=== PATIENT | female | born 1940 | race Caucasian/White ===

== ENCOUNTER → 2023-11-22 10:58 | Outpatient (REF) | payer MEDICARE, BC, SELFPAY ==
[2023-11-22 11:42] LABS: % Basophils 0.7 % (0-2); % Eosinophils 2.7 % (0-6); % Immature Granulocytes 0.2 % (0-0.5); % Lymphocytes 20.4 % (20.5-51.1); % Monocytes 7.7 % (1.7-9.3); % Neutrophils 68.3 % (42.2-75.2); Absolute Eosinophils 0.1 10^3/uL (0-0.7); Absolute Lymphocytes 0.9 10^3/uL (1.2-3.4); Absolute Monocytes 0.4 10^3/uL (0.1-0.6); Absolute Neutrophils 3.1 10^3/uL (1.4-6.5); Hematocrit 32.2 % (37.0-47.0); Mean Corp Hgb Conc. 34.2 g/dL (33.0-37.0); Mean Corpuscular Hgb 32.3 pg (27.0-31.0); Mean Corpuscular Volume 94.4 fL (81.0-99.0); Mean Platelet Volume 9.7 fL (7.4-10.4); Nucleated Red Blood Cells % 0 %; Platelet Count 260 10^3/uL (130-400); Red Blood Cell Count 3.41 10^6/uL (4.20-5.40); Red Cell Dist. Width 13.2 % (11.5-14.5); White Blood Cell Count 4.5 10^3/uL (4.8-10.8)
[2023-11-22 11:53] LABS: Erythrocyte Sed Rate 35 mm/hour (0-20)
[2023-11-22 13:37] LABS: Vitamin B12 756 pg/ml (239-931)
[2023-11-22 19:52] LABS: Folate > 20.0 ng/ml (2.76-20)
[2023-11-23 16:36] LABS: Number Of Markers 26 markers; Source Blood
[2023-11-25 17:11] LABS: Albumin 3.95 g/dL (3.75-5.01); Alpha 1 Globulin 0.28 g/dL (0.19-0.46); Alpha 2 Globulin 0.84 g/dL (0.48-1.05); Free Kappa Light Chains,Quant 24.91 mg/L (3.30-19.40); Free Lambda Light Chains,Quant 17.46 mg/L (5.71-26.30); IgA 161 mg/dL (68-408); IgG 1103 mg/dL (768-1632); IgM 50 mg/dL (35-263); Immunofixation Electrophoresis IFE Done; Kappa/Lambda Fr Light Ratio 1.43 (0.26-1.65); Total Protein-Electrophoresis 6.8 g/dL (6.3-8.2)
== END ==
LOC: REG 10:58
PROVIDERS: ATTENDING PHYSICIAN Internal Medicine Hematology & Oncology; FAMILY PHYSICIAN Family Medicine
DX: I82.401 Acute embolism and thrombosis of unspecified deep veins of right lower extremity (principal); D72.819 Decreased white blood cell count, unspecified; D50.9 Iron deficiency anemia, unspecified; Z79.899 Other long term (current) drug therapy
CPT/HCPCS: 36415; 82607; 82746; 82784; 83521; 84155; 84165; 85025; 85652; 86334

== ENCOUNTER → 2024-02-15 11:36 | Outpatient (REF) | payer MEDICARE, BC, SELFPAY ==
[2024-02-15 13:03] LABS: % Basophils 1.1 % (0-2); % Eosinophils 4.9 % (0-6); % Lymphocytes 24.1 % (20.5-51.1); % Monocytes 12.9 % (1.7-9.3); Absolute Eosinophils 0.2 10^3/uL (0-0.7); Absolute Lymphocytes 0.8 10^3/uL (1.2-3.4); Absolute Monocytes 0.5 10^3/uL (0.1-0.6); Hematocrit 30.5 % (37.0-47.0); Hemoglobin 10.2 g/dL (12.0-16.0); Mean Corp Hgb Conc. 33.4 g/dL (33.0-37.0); Mean Corpuscular Hgb 31.5 pg (27.0-31.0); Mean Corpuscular Volume 94.1 fL (81.0-99.0); Mean Platelet Volume 9.9 fL (7.4-10.4); Nucleated Red Blood Cells % 0 %; Platelet Count 213 10^3/uL (130-400); Red Blood Cell Count 3.24 10^6/uL (4.20-5.40); Red Cell Dist. Width 12.9 % (11.5-14.5); White Blood Cell Count 3.5 10^3/uL (4.8-10.8)
[2024-02-15 14:09] LABS: Folate > 20.0 ng/ml (2.76-20); Vitamin B12 865 pg/ml (239-931)
[2024-02-15 14:22] LABS: Erythrocyte Sed Rate 38 mm/hour (0-20)
[2024-02-17 09:51] LABS: Number Of Markers 26 markers; Source Blood
== END ==
LOC: REG 11:36
PROVIDERS: ATTENDING PHYSICIAN Internal Medicine Hematology & Oncology; FAMILY PHYSICIAN Family Medicine
DX: I82.401 Acute embolism and thrombosis of unspecified deep veins of right lower extremity (principal); D72.819 Decreased white blood cell count, unspecified; D50.9 Iron deficiency anemia, unspecified; D51.9 Vitamin B12 deficiency anemia, unspecified
CPT/HCPCS: 36415; 82607; 82746; 82784; 83521; 84155; 84165; 85025; 85652; 86334

== ENCOUNTER → 2024-05-29 08:41 | Outpatient (REF) | payer MEDICARE, BC, SELFPAY ==
[2024-05-29 10:05] LABS: % Basophils 0.8 % (0-2); % Eosinophils 4.3 % (0-6); % Immature Granulocytes 0.3 % (0-0.5); % Lymphocytes 21.6 % (20.5-51.1); % Monocytes 9.8 % (1.7-9.3); % Neutrophils 63.2 % (42.2-75.2); Absolute Eosinophils 0.2 10^3/uL (0-0.7); Absolute Lymphocytes 0.9 10^3/uL (1.2-3.4); Absolute Monocytes 0.4 10^3/uL (0.1-0.6); Absolute Neutrophils 2.5 10^3/uL (1.4-6.5); Hematocrit 33.4 % (37.0-47.0); Hemoglobin 11.4 g/dL (12.0-16.0); Mean Corp Hgb Conc. 34.1 g/dL (33.0-37.0); Mean Corpuscular Hgb 32.3 pg (27.0-31.0); Mean Corpuscular Volume 94.6 fL (81.0-99.0); Mean Platelet Volume 9.8 fL (7.4-10.4); Nucleated Red Blood Cells % 0 %; Platelet Count 236 10^3/uL (130-400); Red Blood Cell Count 3.53 10^6/uL (4.20-5.40); Red Cell Dist. Width 12.7 % (11.5-14.5)
[2024-05-29 11:54] LABS: ALT (SGPT) 22 U/L (0-35); AST (SGOT) 36 U/L (14-36); Albumin 4.5 g/dl (3.5-5.0); Alkaline Phosphatase 56 U/L (38-126); Blood Urea Nitrogen 23 mg/dl (7-17); Calcium 9.7 mg/dl (8.4-10.2); Carbon Dioxide 25 mmol/L (22-30); Chloride 98 mmol/L (98-107); Glucose 85 mg/dl (70-99); HDL Cholesterol 100 mg/dl; Iron 96 ug/dl (37-170); LDL Cholesterol, Calculated 108 mg/dl; Potassium 4.6 mmol/L (3.5-5.1); Sodium 134 mmol/L (135-145); Total Bilirubin 0.6 mg/dl (0.2-1.3); Total Cholesterol 219 mg/dl (50-199); Triglyceride 55 mg/dl (10-149); Very Low Density Lipoprotein 11 mg/dl (0-30); eGFR > 60.00
== END ==
LOC: REG 08:41
PROVIDERS: ATTENDING PHYSICIAN Internal Medicine Hematology & Oncology; FAMILY PHYSICIAN Family Medicine
DX: I10 Essential (primary) hypertension (principal); E78.00 Pure hypercholesterolemia, unspecified; I82.401 Acute embolism and thrombosis of unspecified deep veins of right lower extremity; D72.819 Decreased white blood cell count, unspecified; D50.9 Iron deficiency anemia, unspecified
CPT/HCPCS: 36415; 80053; 80061; 82728; 83540; 85025

== ENCOUNTER → 2024-08-28 15:54 | Outpatient (REF) | payer MEDICARE, BC, SELFPAY ==
[2024-08-28 18:01] LABS: % Basophils 0.7 % (0-2); % Eosinophils 2.9 % (0-6); % Immature Granulocytes 0.2 % (0-0.5); % Lymphocytes 27.3 % (20.5-51.1); % Monocytes 10.3 % (1.7-9.3); % Neutrophils 58.6 % (42.2-75.2); Absolute Eosinophils 0.1 10^3/uL (0-0.7); Absolute Lymphocytes 1.1 10^3/uL (1.2-3.4); Absolute Monocytes 0.4 10^3/uL (0.1-0.6); Absolute Neutrophils 2.5 10^3/uL (1.4-6.5); Mean Corp Hgb Conc. 33.3 g/dL (33.0-37.0); Mean Corpuscular Hgb 31.8 pg (27.0-31.0); Mean Corpuscular Volume 95.4 fL (81.0-99.0); Mean Platelet Volume 10.3 fL (7.4-10.4); Nucleated Red Blood Cells % 0 %; Platelet Count 261 10^3/uL (130-400); Red Blood Cell Count 3.46 10^6/uL (4.20-5.40); Red Cell Dist. Width 12.5 % (11.5-14.5); White Blood Cell Count 4.2 10^3/uL (4.8-10.8)
[2024-08-28 18:22] LABS: Iron 43 ug/dl (37-170)
[2024-08-28 18:32] LABS: Percent Saturation 18 % (20-50); Total Iron Binding Capacity 236 ug/dl (265-497)
[2024-08-28 19:30] LABS: Folate > 20.0 ng/ml (2.76-20); Vitamin B12 798 pg/ml (239-931)
== END ==
LOC: REG 15:54
PROVIDERS: ATTENDING PHYSICIAN Nurse Practitioner Family; FAMILY PHYSICIAN Family Medicine
DX: I82.401 Acute embolism and thrombosis of unspecified deep veins of right lower extremity (principal); D72.819 Decreased white blood cell count, unspecified; D50.9 Iron deficiency anemia, unspecified; D51.9 Vitamin B12 deficiency anemia, unspecified
CPT/HCPCS: 36415; 82607; 82728; 82746; 83540; 83550; 85025

== ENCOUNTER → 2025-03-07 07:06 | Outpatient (REF) | payer MEDICARE, BC, SELFPAY ==
[2025-03-07 08:05] LABS: % Eosinophils 2.6 % (0-6); % Immature Granulocytes 0.3 % (0-0.5); % Lymphocytes 23.8 % (20.5-51.1); % Monocytes 10.8 % (1.7-9.3); % Neutrophils 61.5 % (42.2-75.2); Absolute Eosinophils 0.1 10^3/uL (0-0.7); Absolute Lymphocytes 0.9 10^3/uL (1.2-3.4); Absolute Monocytes 0.4 10^3/uL (0.1-0.6); Absolute Neutrophils 2.4 10^3/uL (1.4-6.5); Hematocrit 33.9 % (37.0-47.0); Hemoglobin 11.2 g/dL (12.0-16.0); Mean Corpuscular Hgb 31.3 pg (27.0-31.0); Mean Corpuscular Volume 94.7 fL (81.0-99.0); Mean Platelet Volume 9.6 fL (7.4-10.4); Nucleated Red Blood Cells % 0 %; Platelet Count 264 10^3/uL (130-400); Red Blood Cell Count 3.58 10^6/uL (4.20-5.40); White Blood Cell Count 3.9 10^3/uL (4.8-10.8)
[2025-03-07 08:32] LABS: Iron 77 ug/dl (37-170)
[2025-03-07 08:42] LABS: Percent Saturation 30 % (20-50); Total Iron Binding Capacity 250 ug/dl (265-497)
== END ==
LOC: REG 07:06
PROVIDERS: ATTENDING PHYSICIAN Internal Medicine Hematology & Oncology; FAMILY PHYSICIAN Family Medicine
DX: I82.401 Acute embolism and thrombosis of unspecified deep veins of right lower extremity (principal); D72.819 Decreased white blood cell count, unspecified; D50.9 Iron deficiency anemia, unspecified
CPT/HCPCS: 36415; 82728; 83540; 83550; 85025

== ENCOUNTER → 2025-09-16 07:35 | Outpatient (REF) | payer MEDICARE, BC, SELFPAY ==
[2025-09-16 08:58] LABS: Hematocrit 33.8 % (37.0-47.0); Hemoglobin 11.2 g/dL (12.0-16.0); Mean Corp Hgb Conc. 33.1 g/dL (33.0-37.0); Mean Corpuscular Volume 96.0 fL (81.0-99.0); Nucleated Red Blood Cells % 0 %; Platelet Count 295 10^3/uL (130-400); Red Cell Dist. Width 14.2 % (11.5-14.5)
[2025-09-16 15:26] LABS: Ferritin 327.0 ng/ml (11.1-264.0)
[2025-09-16 16:21] LABS: ALT (SGPT) 21 U/L (0-35); AST (SGOT) 34 U/L (14-36); Albumin 4.3 g/dl (3.5-5.0); Alkaline Phosphatase 53 U/L (38-126); Blood Urea Nitrogen 16 mg/dl (7-17); Calcium 9.4 mg/dl (8.4-10.2); Carbon Dioxide 23 mmol/L (22-30); Chloride 109 mmol/L (98-107); Glucose 94 mg/dl (70-99); HDL Cholesterol 98 mg/dl; Iron 88 ug/dl (37-170); LDL Cholesterol, Calculated 124 mg/dl; Potassium 4.3 mmol/L (3.5-5.1); Sodium 138 mmol/L (135-145); Total Protein 7.4 g/dl (6.3-8.2); Very Low Density Lipoprotein 11 mg/dl (0-30); eGFR > 60.00
[2025-09-16 16:30] LABS: Total Iron Binding Capacity 231 ug/dl (265-497)
== END ==
LOC: REG 07:35
PROVIDERS: ATTENDING PHYSICIAN Family Medicine
DX: M79.2 Neuralgia and neuritis, unspecified (principal); N39.490 Overflow incontinence; D64.9 Anemia, unspecified; R26.89 Other abnormalities of gait and mobility; R42 Dizziness and giddiness; I10 Essential (primary) hypertension; R74.8 Abnormal levels of other serum enzymes; R79.9 Abnormal finding of blood chemistry, unspecified
CPT/HCPCS: 36415; 80053; 80061; 82728; 83540; 83550; 85025